=== PATIENT | female | born 1995 ===

== ENCOUNTER 2021-06-03 17:13 | Emergency (ER) | payer OTHER ==
--- NOTE | 2021-06-03 18:17 | Emergency Department Report ---
ED Female HPI - General Chief complaint: Vaginal Bleeding Stated complaint: 2MONTH BLEEDING Time Seen by Provider: 06/03/21 18:15 Source: patient Mode of arrival: Ambulatory Limitations: No Limitations - History of Present Illness Initial comments: The patient was evaluated in the emergency department for symptoms described in the history of present illness. He/she was evaluated in the context of the global COVID-19 pandemic, which necessitated consideration that the patient might be at risk for infection with the virus that causes COVID-19. Institutional protocols and algorithms that pertain to the evaluation of patients at risk for COVID-19 are in a state of rapid change based on information released by regulatory bodies including the CDC and federal and state organizations. These policies and algorithms were followed during the patient's care in the emergency department. Please note that these policies, procedures and recommendations changed on a rapid basis. 25-year-old female presents to the emergency room reporting she started having some vaginal bleeding today. She admits to nausea. She is not sure when her l ast menstrual period as she has been off the Depo since December. She states that she had a urine positive test. She is 3 para 2. She states she has had no complications with this current or her prior pregnancies. She states she is currently taking vitamins. She has not set up CLASSIFIER care at this time. She denies any past medical history. MD Complaint: vaginal bleeding, pelvic pain -: This afternoon Location: suprapubic Severity: moderate Quality: cramping, other (pressure) Consistency: constant Improves with: none Worsens with: none Are you Now?: Yes Associated Symptoms: vaginal bleeding, abdominal pain, nausea/vomiting, fever/chills (chills). denies: headaches, dysuria, hematuria - Related Data Sexually active: Yes : 3 Para: 2 Allergies Allergy/AdvReac Type Severity Reaction Status Date / Time No Known Allergies Allergy Verified 06/03/21 18:04 ED Review of Systems ROS: Stated complaint: 2MONTH BLEEDING Other details as noted in HPI ED Past Medical Hx - Past Medical History Previous Medical History?: No - Surgical History Past Surgical History?: No ED Physical Exam - General Limitations: No Limitations General appearance: alert, in no apparent distress - Head Head exam: Present: atraumatic, normocephalic - Eye Eye exam: Present: normal appearance - ENT ENT exam: Present: mucous membranes moist - Neck Neck exam: Present: normal inspection - Respiratory Respiratory exam: Present: normal lung sounds bilaterally. Absent: respiratory distress - Cardiovascular Cardiovascular Exam: Present: regular rate, normal rhythm. Absent: systolic murmur, diastolic murmur, rubs, gallop - GI/Abdominal GI/Abdominal exam: Present: soft, normal bowel sounds - Extremities Exam Extremities exam: Present: normal inspection - Back Exam Back exam: Present: normal inspection - Neurological Exam Neurological exam: Present: alert, oriented X3 - Psychiatric Psychiatric exam: Present: normal affect, normal mood - Skin Skin exam: Present: warm, dry, intact, normal color. Absent: rash ED Course Vital Signs 06/03/21 18:05 Temperature 98.8 F Pulse Rate 85 Respiratory 16 Rate Blood Pressure 120/65 [Right] O2 Sat by Pulse 100 Oximetry ED Medical Decision Making - Lab Data Result diagrams: 06/03/21 18:35 06/03/21 18:35 Lab Results 06/03/21 06/03/21 06/03/21 Range/Units 18:35 18:35 18:35 WBC 9.5 (4.5-11.0) K/mm3 RBC 3.94 (3.65-5.03) M/mm3 Hgb 12.3 (10.1-14.3) gm/dl Hct 36.3 (30.3-42.9) % MCV 92 (79-97) fl MCH 31 (28-32) pg MCHC 34 (30-34) % RDW 12.9 L (13.2-15.2) % Plt Count 194 (140-440) K/mm3 Lymph % (Auto) 22.0 (13.4-35.0) % [place] % (Auto) 4.9 (0.0-7.3) % Eos % (Auto) 0.9 (0.0-4.3) % Baso % (Auto) 0.3 (0.0-1.8) % Lymph # (Auto) 2.1 (1.2-5.4) K/mm3 [place] # (Auto) 0.5 (0.0-0.8) K/mm3 Eos # (Auto) 0.1 (0.0-0.4) K/mm3 Baso # (Auto) 0.0 (0.0-0.1) K/mm3 Seg Neutrophils % 71.9 H (40.0-70.0) % Seg Neutrophils # 6.8 (1.8-7.7) K/mm3 Sodium 136 L (137-145) mmol/L Potassium 4.5 (3.6-5.0) mmol/L Chloride 101.1 (98-107) mmol/L Carbon Dioxide 22 (22-30) mmol/L Anion Gap 17 mmol/L BUN 8 (7-17) mg/dL Creatinine 0.4 L (0.6-1.2) mg/dL Estimated GFR > 60 ml/min BUN/Creatinine Ratio 20 % Glucose 92 (65-100) mg/dL Calcium 9.3 (8.4-10.2) mg/dL Total Bilirubin 0.30 (0.1-1.2) mg/dL AST 15 (5-40) units/L ALT 12 (7-56) units/L Alkaline Phosphatase 74 (35-129) units/L Total Protein 7.1 (6.3-8.2) g/dL Albumin 4.1 (3.9-5) g/dL Albumin/Globulin Ratio 1.4 % HCG, Quant 48255 H (0-4) mIU/mL Blood Type Ord Rhogam Gestat Weeks WEEKS 06/03/21 Range/Units 18:35 WBC (4.5-11.0) K/mm3 RBC (3.65-5.03) M/mm3 Hgb (10.1-14.3) gm/dl Hct (30.3-42.9) % MCV (79-97) fl MCH (28-32) pg MCHC (30-34) % RDW (13.2-15.2) % Plt Count (140-440) K/mm3 Lymph % (Auto) (13.4-35.0) % [place] % (Auto) (0.0-7.3) % Eos % (Auto) (0.0-4.3) % Baso % (Auto) (0.0-1.8) % Lymph # (Auto) (1.2-5.4) K/mm3 [place] # (Auto) (0.0-0.8) K/mm3 Eos # (Auto) (0.0-0.4) K/mm3 Baso # (Auto) (0.0-0.1) K/mm3 Seg Neutrophils % (40.0-70.0) % Seg Neutrophils # (1.8-7.7) K/mm3 Sodium (137-145) mmol/L Potassium (3.6-5.0) mmol/L Chloride (98-107) mmol/L Carbon Dioxide (22-30) mmol/L Anion Gap mmol/L BUN (7-17) mg/dL Creatinine (0.6-1.2) mg/dL Estimated GFR ml/min BUN/Creatinine Ratio % Glucose (65-100) mg/dL Calcium (8.4-10.2) mg/dL Total Bilirubin (0.1-1.2) mg/dL AST (5-40) units/L ALT (7-56) units/L Alkaline Phosphatase (35-129) units/L Total Protein (6.3-8.2) g/dL Albumin (3.9-5) g/dL Albumin/Globulin Ratio % HCG, Quant (0-4) mIU/mL Blood Type O POSITIVE Ord Rhogam Gestat Weeks Rh pos WEEKS - Radiology Data Radiology results: report reviewed [facility] [address] [id number] Ultrasound Report Signed Patient: LIGIA ARIAS MR#: [id number] : 1995 Acct:[id number] Age/Sex: 25 / F ADM Date: 06/03/21 Loc: ED Attending Dr: Ordering Physician: JOYCELYN GEE Date of Service: 06/03/21 Procedure(s): US OB <= 14 weeks fetus Accession Number(s): [id number] cc: JYOCELYN GEE ULTRASOUND OBSTETRIC REASON FOR EXAM: with vaginal bleeding and cramps TECHNIQUE: Transabdominal and transvaginal ultrasound was performed to evaluate a first trimester . COMPARISON: None available. FINDINGS: FINDINGS: The pole, yolk sac, and gestational sac are normal in appearance. [place]-rump length: 42.1 mm. This corresponds with a gestational age of 11 weeks 1 day. heart rate: 186 bpm Perigestational hemorrhage: No evidence of perigestational hemorrhage on the provided images. MATERNAL FINDINGS: Uterus measures 12.7 x 7.3 x 10.2 cm, and demonstrates an otherwise unremarkable sonographic appearance. Right ovary is not visualized. No suspicious cystic or solid mass in the right adnexa. Left ovary is unremarkable. No significant free fluid. IMPRESSION: 1. Viable intrauterine . Gestational age is 11 weeks 1 day by ultrasound. Recommend clinical screening and ultrasound follow-up in the second trimester to screen for anomalies. 2. No significant abnormality identified. Signer Name: Alfonzo Rosario MD Signed: 06/03/2021 10:03 PM Workstation Name: [id number] Transcribed By: TERRY Dictated By: ALFONZO ROSARIO MD Electronically Authenticated By: ALFONZO ROSARIO MD Signed Date/Time: 06/03/212202 DD/ 01 TD/TT: - Medical Decision Making 25-year-old female presents to the emergency room reporting she started having some vaginal bleeding today. She admits to nausea. She is not sure when her last menstrual period as she has been off the Depo since December. She states that she had a urine positive test. She is 3 para 2. She states she has had no complications with this current or her prior pregnancies. She states she is currently taking vitamins. She has not set up CLASSIFIER care at this time. She denies any past medical history. Vaginal bleeding protocol placed. Ultrasound pending results. Critical care attestation.: If time is entered above; I have spent that time in minutes in the direct care of this critically ill patient, excluding procedure time. ED Disposition Clinical Impression: Threatened miscarriage Qualifiers: Weeks of gestation: 11 weeks Qualified Code(s): Z3A.11 - 11 weeks gestation of Disposition: 01 HOME / SELF CARE / HOMELESS Is pt being admited?: No Does the pt Need Aspirin: No Condition: Stable Instructions: Vaginal Bleeding During , First Trimester, [id number] Additional Instructions: Ultrasound shows you are 11 weeks and 1 day. It shows an intrauterine gestation with a heart rate of 186. Does suggest to have a follow-up ultrasound in your second trimester for evaluation of anatomy of the baby. I recommend bed rest for the next few days until you are seen by your [facility]. You are to refrain from intercourse strenuous exercising lifting heavy objects or placing any foreign body into the vaginal vault. You can take Tylenol as needed for pain. Be sure to increase your fluid intake and take your vitamins as prescribed. Referrals: PRIMARY CARE, [Primary Care Provider] - 3-5 Days [facility] [Provider Group] - 3-5 Days Forms: Work/School Release Form(ED) Time of Disposition: 22:16
[2021-06-03 19:38] LABS: Alanine Aminotransferase 12 units/L (7-56); Albumin 4.1 g/dL (3.9-5); Basophils % (Auto) 0.3 % (0.0-1.8); Blood Urea Nitrogen 8 mg/dL (7-17); Calcium 9.3 mg/dL (8.4-10.2); Eosinophils # (Auto) 0.1 K/mm3 (0.0-0.4); Eosinophils % (Auto) 0.9 % (0.0-4.3); Hematocrit 36.3 % (30.3-42.9); Hemoglobin 12.3 gm/dl (10.1-14.3); Hemolysis Index 13; Lymphocytes # (Auto) 2.1 K/mm3 (1.2-5.4); Mean Corpuscular HGB Conc 34 % (30-34); Mean Corpuscular Volume 92 fl (79-97); Monocytes # (Auto) 0.5 K/mm3 (0.0-0.8); Monocytes % (Auto) 4.9 % (0.0-7.3); Platelet Count 194 K/mm3 (140-440); Red Blood Count 3.94 M/mm3 (3.65-5.03); Red Cell Distribution Width 12.9 % (13.2-15.2)
[2021-06-03 19:39] LABS: BUN/Creatinine Ratio 20
[2021-06-03 20:31] LABS: Bilirubin,Urine NEG (Negative); Blood,Urine LG (Negative); Color,Urine Red (Yellow); Urobilinogen,Urine < 2.0 mg/dL (<2.0)
[2021-06-03 20:33] LABS: RBC,Urine > 182.0 /HPF (0.0-6.0)
--- NOTE | 2021-06-03 22:08 | Ultrasound Report ---
ULTRASOUND OBSTETRIC REASON FOR EXAM: with vaginal bleeding and cramps TECHNIQUE: Transabdominal and transvaginal ultrasound was performed to evaluate a first trimester pre gnancy. COMPARISON: None available. FINDINGS: FINDINGS: The pole, yolk sac, and gestational sac are normal in appearance. [place]-rump length: 42.1 mm. This corresponds with a gestational age of 11 weeks 1 day. heart rate: 186 bpm Perigestational hemorrhage: No evidence of perigestational hemorrhage on the provided images. MATERNAL FINDINGS: Uterus measures 12.7 x 7.3 x 10.2 cm, and demonstrates an otherwise unremarkable sonographic appearan ce. Right ovary is not visualized. No suspicious cystic or solid mass in the right adnexa. Left ovary is unremarkable. No significant free fluid. IMPRESSION: 1. Viable intrauterine . Gestational age is 11 weeks 1 day by ultrasound. Recommend clinical screening and ultrasound follow-up in the second trimester to screen for anomalies. 2. No significant abnormality identified. Signer Name: Rk Garcia MD Signed: 06/03/2021 10:03 PM Workstation Name: [id number]
[2021-06-03 22:30] VITALS: BP 112/73
== END 2021-06-03 22:32 | disposition home or self-care (01) ==
LOC: ED 17:13
DX: O20.0 Threatened abortion (principal); Z3A.11 11 weeks gestation of pregnancy
CPT/HCPCS: 36415; 76801; 80053; 81001; 84702; 85025; 86900; 86901; 99284